=== PATIENT | female | born 1935 | race Caucasian/White ===

== ENCOUNTER 2018-06-19 12:25 | Emergency (ER) | payer OTHER ==
[~2018-06-19] VITALS: Ht 160 cm; Wt 79.8 kg
[2018-06-19 12:48] LABS: URINE BILIRUBIN NEGATIVE (Negative); URINE BLOOD NEGATIVE (Negative); URINE CLARITY CLEAR; URINE COLOR YELLOW; URINE GLUCOSE-RANDOM 3+ (Negative); URINE KETONES NEGATIVE (Negative); URINE LEUKOCYTES-REFLEX NEGATIVE (Negative); URINE PROTEIN NEGATIVE (Negative); URINE UROBILINOGEN 0.2 E.U./dl (0.2-1.0)
[2018-06-19] MEDS ORDERED: AMARYL2 MG PO (12:49)
[2018-06-19 12:50] LABS: URINE NITRITE-REFLEX POSITIVE (Negative)
[2018-06-19] MEDS ORDERED: CELEXA20 MG PO (12:50)
[2018-06-19] MEDS ORDERED: LIORESAL 10 MG10 MG PO (12:50)
[2018-06-19] MEDS ORDERED: METFORMIN HCL500 MG PO (12:51)
[2018-06-19] MEDS ORDERED: PREDNISOLONE ACE5 ML OPHTHALMIC (12:52)
[2018-06-19] MEDS ORDERED: PRAVACHOL40 MG PO (12:54)
[2018-06-19] MEDS ORDERED: POLYMYXIN B/TMP10 ML OPHTHALMIC (12:54)
[2018-06-19 12:57] LABS: BACTERIA-REFLEX >30 Many /HPF (None Seen); CASTS None Seen /LPF (None Seen); SQUAMOUS 0-3 Few /LPF (0-3); URINE RBC None Seen /HPF (0-2); URINE WBC-REFLEX None Seen /HPF (0-5)
[2018-06-19 12:58] LABS: CRYSTALS None Seen /LPF (None Seen)
[2018-06-19 12:59] LABS: CALCIUM 9.6 mg/dL (8.5-10.1); POTASSIUM 4.2 mmol/L (3.5-5.1)
[2018-06-19 13:01] LABS: ABSOLUTE EOSINOPHILS 0.2 thou/uL (0.0-0.7); ABSOLUTE LYMPHOCYTES 1.1 thou/uL (0.8-5.3); ABSOLUTE MONOCYTES 0.5 thou/uL (0.0-1.2); ABSOLUTE NEUTROPHILS 3.1 thou/uL (1.6-8.1); BASOPHILS 0.5 %; EOSINOPHILS 3.9 %; HEMATOCRIT 35.1 % (37.0-47.0); HEMOGLOBIN 11.9 gm/dL (12.0-15.0); MCH 32.5 pg (26.0-34.0); MCV 95.6 fL (80.0-100.0); MONOCYTES 9.4 %; MPV 8.2 fl. (7.2-11.1); NUCLEATED RBCS 0 /100WBC; PLATELET COUNT* 155 thou/uL (150-400); POLYS 63.2 %; RBC 3.68 mil/uL (4.20-5.00); RDW-CV 12.9 % (10.5-14.5); WBC 4.9 thou/uL (4.0-11.0)
[2018-06-19 13:03] LABS: ALBUMIN 3.4 g/dL (3.4-5.0); TOTAL BILIRUBIN 0.3 mg/dL (<0.1-1.0)
[2018-06-19] MEDS ORDERED: MACROBID 100 M100 MG PO (13:15)
[2018-06-19 13:50] VITALS: BP 110/63
== END 2018-06-19 13:50 | disposition home or self-care (01) ==
LOC: M.ERS 12:25
PROVIDERS: Nurse Practitioner Family
DX: N39.0 Urinary tract infection, site not specified (principal)